=== PATIENT | female | born 1945 | race Caucasian/White ===

== ENCOUNTER 2023-01-18 05:57 | Day surgery (SDC) | payer OTHER ==
[~2023-01-18] VITALS: Ht 152.4 cm; Wt 78.9 kg
[~2023-01-18 05:57] MED LIST: ADVAIR HFA 115/12 GM IH; COZAAR50 MG PO; HYDRALAZINE HCL50 MG PO; LASIX40 MG PO; LIPITOR40 MG PO; PROVENTIL HFA6.7 GM IH
== END 2023-01-18 13:45 | disposition home or self-care (01) ==
LOC: CIR.AMB 05:57
PROVIDERS: ATTEND Orthopaedic Surgery Hand Surgery
DX: S62.612A Displaced fracture of proximal phalanx of right middle finger, initial encounter for closed fracture (principal); S62.614A Displaced fracture of proximal phalanx of right ring finger, initial encounter for closed fracture; Z20.822 Contact with and (suspected) exposure to COVID-19; E11.9 Type 2 diabetes mellitus without complications; E78.00 Pure hypercholesterolemia, unspecified; I10 Essential (primary) hypertension; Z87.891 Personal history of nicotine dependence